=== PATIENT | male | born 2000 | race Caucasian/White ===

== ENCOUNTER 2024-04-21 01:33 | Emergency (ER) | payer MEDICAID ==
[~2024-04-21] VITALS: Ht 182.9 cm; Wt 117.9 kg
[2024-04-21] MEDS ORDERED: FAMOTIDINE/PF INJ 20 MG/2 ML VIAL IV ONE (02:06)
[2024-04-21] MEDS ORDERED: ONDANSETRON HCL/PF 4 MG/2 ML VIAL ONE (02:06)
[2024-04-21] MEDS: IV NS 0.9% 1,000 ML BAG IV ONE (02:23)
[2024-04-21] MEDS: FAMOTIDINE/PF INJ 20 MG/2 ML VIAL IV ONE (02:24)
[2024-04-21] MEDS: ONDANSETRON HCL/PF 4 MG/2 ML VIAL IVP ONE (02:24)
[2024-04-21 02:42] LABS: BASOPHILS % (AUTO) 0.1 % (0.0-2.0); EOSINOPHILS # (AUTO) 0.1 K/uL (0.0-0.7); EOSINOPHILS % (AUTO) 0.8 % (0.0-6.0); HEMATOCRIT 48 % (39-51); HEMOGLOBIN 15.7 g/dL (13.5-17.5); LYMPHOCYTES # (AUTO) 0.7 K/uL (0.8-4.8); MEAN CORPUSCULAR HEMOGLOBIN 27 PG (26.0-33.0); MEAN CORPUSCULAR HGB CONC 33 g/dl (31.0-36.0); MEAN CORPUSCULAR VOLUME 83 fL (80-96); MONOCYTES # (AUTO) 0.7 K/uL (0.1-1.30); MONOCYTES % (AUTO) 5.3 % (2.0-12.0); NEUTROPHILS # (AUTO) 10.9 K/uL (1.8-8.9); NEUTROPHILS % (AUTO) 87.8 % (43.0-81.0); PLATELET COUNT (AUTO) 265 K/uL (150-450); RED BLOOD CELL COUNT(AUTO) 5.74 MIL/uL (4.5-6.0); RED CELL DISTRIBUTION WIDTH 13.8 % (11.5-15.0); WHITE BLOOD COUNT (AUTO) 12.4 K/uL (4.3-11.0)
[2024-04-21 02:49] LABS: ALBUMIN 3.8 g/dL (3.4-5.0); BILIRUBIN,DIRECT 0.1 mg/dL (0.0-0.2); BILIRUBIN,TOTAL 0.3 mg/dL (0.2-1.0); CALCIUM, SERUM 8.8 mg/dL (8.5-10.1); CREATININE 0.8 mg/dL (0.6-1.3); POTASSIUM 3.9 mmol/L (3.5-5.1); TOTAL PROTEIN, SERUM 7.9 g/dL (6.4-8.2)
[2024-04-21] MEDS ORDERED: ONDA4TAB5 PO (03:00)
[2024-04-21 03:13] VITALS: BP 131/85; TEMP 98.6; O2SAT 94
== END 2024-04-21 03:24 | disposition home or self-care (01) ==
LOC: ER 01:33
DX: R11.2 Nausea with vomiting, unspecified (principal); K21.9 Gastro-esophageal reflux disease without esophagitis
CPT/HCPCS: 99284; 96374; 96361; 96375; 85025; 80048; 83690; 80076; 36415; J3490; J2405; J7030